=== PATIENT | female | born 1970 | race Hispanic/Latino ===

== ENCOUNTER → 2018-04-20 | Day surgery (SDC) | payer BC ==
[~2018-04-20] MED LIST: Biotin PO; FENTANYL CITRATE/PF 100MCG/2 ML INJ ONE; MIDAZOLAM HCL 2 MG/2 ML VIAL ONE; PROPOFOL IV EMULSION 10 MG/ML 50 ML VIAL ONE; SIMVASTATIN20 MG PO
--- OUTSIDE RECORDS SUMMARY | 2018-04-20 05:40 | XMS REPORT | Clinical Summary ---
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 Never 03/13/2018 How many drinks containing alcohol do you have on Not asked a typical day when you are drinking? How often do you have six or more drinks on one Not asked occasion? Sex Assigned at Date Recorded Not on file Industry Job Start Date Occupation Not on file Not on file Not on file Travel End Travel History Travel Start No recent travel history available. Last Filed Vital Signs Time Taken Vital Sign Reading 03/13/2018 10:50 PM [employer]OCKET ASSEMBLY OPERATOR Blood Pressure 169/71 03/13/2018 10:50 PM ROCKET ASSEMBLY OPERATOR Pulse 69 03/13/2018 5:17 PM ROCKET ASSEMBLY OPERATOR Temperature 36.8 C (98.3 F) 03/13/2018 10:50 PM ROCKET ASSEMBLY OPERATOR Respiratory Rate 17 03/13/2018 10:50 PM ROCKET ASSEMBLY OPERATOR Oxygen Saturation 100% - Inhaled Oxygen - Concentration - Weight - 03/13/2018 5:18 PM ROCKET ASSEMBLY OPERATOR Height 157.5 cm (5' 2") - Body Mass Index - Plan of Treatment Health Maintenance Due Date Last Done Comments CERVICAL CANCER SCREENING 1989 INFLUENZA VACCINE 09/22/2017 Procedures Comments Procedure Name Priority Date/Time Associated Diagnosis CT ABDOMEN PELVIS W STAT 03/13/2018 CONTRAST 10:16 PM ROCKET ASSEMBLY OPERATOR ESTIMATED GFR STAT 03/13/2018 7:36 PM ROCKET ASSEMBLY OPERATOR HCG QUALITATIVE, URINE STAT 03/13/2018 SCREEN 7:36 PM ROCKET ASSEMBLY OPERATOR URINALYSIS SCREEN AND STAT 03/13/2018 MICROSCOPY, WITH REFLEX 7:36 PM ROCKET ASSEMBLY OPERATOR TO CULTURE LIPASE LEVEL STAT 03/13/2018 7:36 PM ROCKET ASSEMBLY OPERATOR COMPREHENSIVE METABOLIC STAT 03/13/2018 PANEL 7:36 PM ROCKET ASSEMBLY OPERATOR HC COMPLETE BLD COUNT STAT 03/13/2018 W/AUTO DIFF 7:36 PM ROCKET ASSEMBLY OPERATOR URINE CULTURE STAT 03/13/2018 7:36 PM ROCKET ASSEMBLY OPERATOR after 04/19/2017 Results * CT Abdomen Pelvis W Contrast (03/13/2018 10:16 PM ROCKET ASSEMBLY OPERATOR) Narrative Performed At EXAM: CT ABDOMEN PELVIS W CONTRAST [facility] CLINICAL HISTORY:Abd painunspecified TECHNIQUE: Multidetector CT of the abdomen and pelvis was performed following intravenous administration of iodinated contrast with multiplanar reformats. CT scans are performed using radiation dose reduction techniques (iterative reconstruction and/or automated exposure control). Technical factors are evaluated and adjusted to ensure appropriate moderation of exposure. Automated dose management technology is applied to adjust radiation exposure while achieving a diagnostic quality image. COMPARISON:None FINDINGS: Lung bases: Dependent atelectasis. Otherwise unremarkable. Liver:Question of mild hepatic steatosis. No evidence for suspicious focal hepatic lesion. Gallbladder and biliary:Unremarkable. Pancreas:No focal pancreatic lesion identified. No pancreatic duct dilatation. Spleen: Unremarkable. Gastrointestinal:Stomach is unremarkable in appearance. Large and small bowel are normal in caliber. Appendix is visualized and appears normal. Scattered colonic diverticula are identified without evidence of acute diverticulitis. Peritoneum:No ascites or free air. Adrenals: Unremarkable. Kidneys and ureters:There is no evidence for large irregular renal mass, obstructing calculi, hydronephrosis, or hydroureter. Urinary bladder: Unremarkable. Reproductive organs:Uterus is unremarkable in appearance per CT. Lymph nodes:No enlarged lymph nodes in the abdomen or pelvis. Vascular:Unremarkable. Abdominal wall:Unremarkable. Bones:No acute osseous abnormality identified. L4-5 and L5-S1 moderate to advanced spondylosis is noted. IMPRESSION: 1.Subtle mid abdominal mesenteric stranding is identified with a few subcentimeter lymph nodes also seen, nonspecific. Findings may be physiological. Mesenteric panniculitis is on the differential. Otherwise no CT evidence for acute abdominopelvic process. 2.Scattered colonic diverticula are identified without evidence of acute diverticulitis. [facility]-[id number] Procedure Note Hm Interface, Radiology Results Incoming - 03/13/2018 10:41 PM ROCKET ASSEMBLY OPERATOR EXAM: CT ABDOMEN PELVIS W CONTRAST CLINICAL HISTORY: Abd pain unspecified TECHNIQUE: Multidetector CT of the abdomen and pelvis was performed following intravenous administration of iodinated contrast with multiplanar reformats. CT scans are performed using radiation dose reduction techniques (iterative reconstruction and/or automated exposure control). Technical factors are evaluated and adjusted to ensure appropriate moderation of exposure. Automated dose management technology is applied to adjust radiation exposure while achieving a diagnostic quality image. COMPARISON: None FINDINGS: Lung bases: Dependent atelectasis. Otherwise unremarkable. Liver: Question of mild hepatic steatosis. No evidence for suspicious focal hepatic lesion. Gallbladder and biliary: Unremarkable. Pancreas: No focal pancreatic lesion identified. No pancreatic duct dilatation. Spleen: Unremarkable. Gastrointestinal: Stomach is unremarkable in appearance. Large and small bowel are normal in caliber. Appendix is visualized and appears normal. Scattered colonic diverticula are identified without evidence of acute diverticulitis. Peritoneum: No ascites or free air. Adrenals: Unremarkable. Kidneys and ureters: There is no evidence for large irregular renal mass, obstructing calculi, hydronephrosis, or hydroureter. Urinary bladder: Unremarkable. Reproductive organs: Uterus is unremarkable in appearance per CT. Lymph nodes: No enlarged lymph nodes in the abdomen or pelvis. Vascular: Unremarkable. Abdominal wall: Unremarkable. Bones: No acute osseous abnormality identified. L4-5 and L5-S1 moderate to advanced spondylosis is noted. IMPRESSION: 1. Subtle mid abdominal mesenteric stranding is identified with a few subcentimeter lymph nodes also seen, nonspecific. Findings may be physiological. Mesenteric panniculitis is on the differential. Otherwise no CT evidence for acute abdominopelvic process. 2. Scattered colonic diverticula are identified without evidence of acute diverticulitis. [facility]-[id number] Performing Organization Address City/State/Zipcode Phone Number [facility] [address] [place] [address] * Urinalysis screen and microscopy, with reflex to culture (03/13/2018 7:36 PM ROCKET ASSEMBLY OPERATOR) Specimen site Clean catch [facility] Color, UA Straw [facility] Appearance, UA Clear [facility] Specific gravity, UA 1.015 1.001 - 1.035 [facility] pH, UA 5.0 5.0 - 8.5 [facility] Protein, UA Negative Negative [facility] Glucose, UA Negative Negative [facility] Ketones, UA Trace (A) Negative [facility] Bilirubin, UA Negative Negative [facility] Blood, UA Negative Negative [facility] Nitrite, UA Negative Negative [facility] Urobilinogen, UA <2.0 <2.0 [facility] Leukocyte esterase, UA Negative Negative [facility] Epithelial cells, UA 3 /HPF [facility] WBC, UA 4 0 - 4 /HPF [facility] RBC, UA <1 0 - 5 /HPF [facility] Bacteria, UA Few None seen [facility] Yeast, UA None seen [facility] Yeast with pseudohyphae, None seen [facility] Specimen Urine Performing Organization Address City/[facility] Centercode Phone Number [facility] [place] [address] PATHOLOGY AND GENOMIC MEDICINE [address] * Estimated GFR (03/13/2018 7:36 PM ROCKET ASSEMBLY OPERATOR) Estimated GFR >=90 mL/min/1.73 m2 [facility] Comment: HOSPITAL CatergoryUnitsInte rpretation G1 >=90 Normal or high G2 60-89Mildly decreased G0d23-78 Mildly to moderately decreased G9z92-30 Moderately to severely decreased G4 15-29Severely decreased G5 <15Kidney failure The eGFR was calculated using the Chronic Kidney Disease Epidemiology Collaboration (CKD-EPI) equation. Interpretation is based on recommendations of the National Kidney Foundation-Kidney Disease Outcomes Quality Initiative (NKF-KDOQI) published in 2014. Specimen Plasma specimen Performing Organization Address City/State/[facility] Cancer Centercode Phone Number [facility] [place] [address] PATHOLOGY AND GENOMIC MEDICINE [address] * hCG qualitative, urine screen (03/13/2018 7:36 PM ROCKET ASSEMBLY OPERATOR) hCG qualitative, urine NegativeComment: Sensitivity [facility] of HCG test: 25 mIU/mL HOSPITAL Specimen Urine Performing Organization Address City/State/Zipcode Phone Number [facility] [address] [place] [address] PATHOLOGY AND GENOMIC MEDICINE [address] [address] [facility] * CBC with platelet and differential (03/13/2018 7:36 PM ROCKET ASSEMBLY OPERATOR) WBC 11.34 (H) 4.50 - 11.00 k/uL [facility] RBC 4.65 4.20 - 5.50 m/uL [facility] HGB 13.5 12.0 - 16.0 g/dL [facility] HCT 42.1 37.0 - 47.0 % [facility] MCV 90.5 82.0 - 100.0 fL [facility] MCH 29.0 27.0 - 34.0 pg [facility] MCHC 32.1 31.0 - 37.0 g/dL [facility] RDW - SD 42.1 37.0 - 55.0 fL [facility] MPV 10.8 8.8 - 13.2 fL [facility] Platelet count 302 150 - 400 k/uL [facility] Nucleated RBC 0.00 /100 WBC [facility] Neutrophils 60.4 39.0 - 69.0 % [facility] Lymphocytes 29.6 25.0 - 45.0 % [facility] Monocytes 7.1 0.0 - 10.0 % [facility] Eosinophils 1.7 0.0 - 5.0 % [facility] Basophils 0.8 0.0 - 1.0 % [facility] Immature granulocytes 0.4Comment: "Immature 0.0 - 1.0 % [facility] granulocytes" (promyelocytes, HOSPITAL myelocytes, metamyelocytes) Specimen Blood Performing Organization Address City/State/Zipcode Phone Number [facility] DEPARTMENT [address] [place] [address] PATHOLOGY AND GENOMIC MEDICINE [address] [address] [facility] * Urine culture (03/13/2018 7:36 PM ROCKET ASSEMBLY OPERATOR) Urine culture SEE COMMENTComment: [facility] Bacteriuria screen negative. HOSPITAL Performing Organization Address City/State/Zipcode Phone Number [facility] DEPARTMENT [address] [address] PATHOLOGY AND GENOMIC MEDICINE [address] * Lipase level (03/13/2018 7:36 PM ROCKET ASSEMBLY OPERATOR) Lipase 24 13 - 60 U/L [facility] Specimen Plasma specimen Performing Organization Address [facility] Cancer Centercode Phone Number [facility] DEPARTMENT [address] [address] PATHOLOGY AND GENOMIC MEDICINE [address] * Comprehensive metabolic panel (03/13/2018 7:36 PM ROCKET ASSEMBLY OPERATOR) Sodium 133 (L) 135 - 148 mEq/L [facility] Potassium 3.7 3.5 - 5.0 mEq/L [facility] Chloride 98 98 - 112 mEq/L [facility] CO2 25 24 - 31 mEq/L [facility] Anion gap 10@ANIO 7 - 15 mEq/L [facility] BUN 10 6 - 20 mg/dL [facility] Creatinine 0.70 0.50 - 0.90 mg/dL [facility] Glucose 95 65 - 99 mg/dL [facility] Calcium 10.1 8.3 - 10.2 mg/dL [facility] Protein 7.9 6.3 - 8.3 g/dL [facility] Comment: HOSPITAL 4.6-7.0 g/dL 1 week 4.4-7.6 g/dL 7 months-1year 5.1-7.3 g/dL 1-2 years5.6-7 .5 g/dL >3 years6.0-8 .0 g/dL 18-150 6.3-8.3 g/dL Albumin 4.1 3.5 - 5.0 g/dL [facility] A/G ratio 1.1 0.7 - 3.8 [facility] Alkaline phosphatase 115 (H) 35 - 104 U/L [facility] AST 38 (H) 10 - 35 U/L [facility] ALT 30 5 - 50 U/L [facility] Total bilirubin 0.7 0.0 - 1.2 mg/dL [facility] Specimen Plasma specimen Performing Organization Address City/[facility] Centercode Phone Number [facility] DEPARTMENT [address] [address] PATHOLOGY AND GENOMIC MEDICINE JAMES TOPETE [address] [place] [phone] HOSPITAL after 04/19/2017 Insurance Payer Benefit Subscriber ID Type Phone Address Plan / Group BCBS BCBS xxxxxxxxxxxx PPO CHOICE PPO/FEDERA L EMPL PPO BCBS ANTHEM xxxxxxxxxxxx PPO BLUE CROSS Advance Directives Patient has advance care planning documents on file. For more information, delmis flores contact: James Topete [address] [place] [address]
[2018-04-20 08:30] VITALS: BP 127/71
== END | disposition home or self-care (01) ==
LOC: OR 05:37
PROVIDERS: ATTEND Internal Medicine Gastroenterology
DX: K29.50 Unspecified chronic gastritis without bleeding (principal); K52.9 Noninfective gastroenteritis and colitis, unspecified; K21.0 Gastro-esophageal reflux disease with esophagitis; K57.30 Diverticulosis of large intestine without perforation or abscess without bleeding; K64.4 Residual hemorrhoidal skin tags; Z71.3 Dietary counseling and surveillance; E66.9 Obesity, unspecified; E78.5 Hyperlipidemia, unspecified; Z68.39 Body mass index [BMI] 39.0-39.9, adult; Z87.891 Personal history of nicotine dependence; Z80.0 Family history of malignant neoplasm of digestive organs
CPT/HCPCS: 43239; 45380; 81025; J2250; J2704; 45378

== ENCOUNTER → 2020-01-11 | Day surgery (SDC) | payer BC ==
[2020-01-08 10:25] LABS: INR 0.99; PROTHROMBIN TIME 13.6 seconds (11.9-14.5)
[2020-01-08 10:26] LABS: PARTIAL THROMBOPLASTIN TIME 26.6 seconds (23.8-35.5)
[~2020-01-11] MED LIST changes: +ATENOLOL50 MG PO; +BUPIVACAINE HCL 0.5% INJ 30 ML VIAL INJ ONE; +CEFAZOLIN SOD 1 GM/NS 50ML 100 ML IV ONE; -FENTANYL CITRATE/PF 100MCG/2 ML INJ ONE; +LIDOCAINE HCL 2% LOCAL INJ 5 ML SDV VIAL INJ ONE; -MIDAZOLAM HCL 2 MG/2 ML VIAL ONE; +PROPOFOL IV EMULSION 10 MG/ML 20 ML VIAL ONE; -PROPOFOL IV EMULSION 10 MG/ML 50 ML VIAL ONE; +SEVOFLURANE INHAL SOLN 250 ML PEN BTL ONE; +TAPAZOLE10 MG PO
[2020-01-11 09:43] VITALS: BP 131/58
--- NOTE | 2020-01-11 10:07 | Operative Report ---
DATE OF PROCEDURE: 01/11/2020 SURGEON: Artie Houston MD PREOPERATIVE DIAGNOSIS: Left carpal tunnel syndrome. PROCEDURE: Left carpal tunnel release. ANESTHESIA: General. INDICATIONS: The patient is a 49-year-old woman, who presents with left carpal tunnel syndrome, was taken to surgery for left carpal tunnel release. PROCEDURE IN DETAIL: After induction of general anesthesia, the patient was placed on the operating table in supine position with the left arm abducted over a hand table. The left hand, wrist, and forearm were prepped and draped circumferentially in sterile fashion. The tourniquet was inflated over the upper arm to 250 mmHg. A small midline incision was created over the median palmar crease of the hand just distal to the distal flexor crease of the wrist. The subcutaneous fat was divided. Transverse carpal ligament was identified and incised with a #15 C blade until the underlying median nerve came into view. As the special education educational assistant retracted the skin edges, transverse carpal ligament was divided proximally and distally until the full length of the median nerve was exposed and decompressed within the carpal tunnel. The point of maximal compression of nerve appeared to be 2 cm distal to the distal flexor crease of the wrist, where the ligament was at its thickest. More distally, the recurrent motor branch of the nerve was preserved within its fat pad. The wound was copiously irrigated with bacitracin solution. The subcutaneous layer was closed with a 3-0 Vicryl suture. The skin was closed with 3-0 nylon suture in a horizontal mattress fashion. A dressing was applied. The patient was awakened, extubated, and taken to postanesthesia care unit in stable condition. No intraoperative complications were encountered. Estimated blood loss was minimal. Artie Houston MD PP/MODL /[id number]
== END | disposition home or self-care (01) ==
LOC: OR 06:17
PROVIDERS: ATTEND Neurological Surgery
DX: G56.02 Carpal tunnel syndrome, left upper limb (principal); I10 Essential (primary) hypertension; R00.1 Bradycardia, unspecified; E03.9 Hypothyroidism, unspecified; Z01.810 Encounter for preprocedural cardiovascular examination; Z01.812 Encounter for preprocedural laboratory examination; Z20.828 Contact with and (suspected) exposure to other viral communicable diseases; Z68.36 Body mass index [BMI] 36.0-36.9, adult
CPT/HCPCS: 36415; 64721; 85610; 85730; 93005; J0690; J2001; J2704; U0002

== ENCOUNTER → 2021-09-26 | Day surgery (SDC) | payer BC ==
[2021-09-24 09:18] LABS: BASOPHILS # (AUTO) 0.1 (0.0-0.1); BASOPHILS % 0.8 % (0.0-1.0); EOSINOPHILS # (AUTO) 0.2 (0.0-0.4); EOSINOPHILS % 2.4 % (0.0-6.0); HEMATOCRIT 41.5 % (34.2-44.1); HEMOGLOBIN 13.4 g/dL (12.0-16.0); LYMPHOCYTES # (AUTO) 3.3 (1.0-3.2); LYMPHOCYTES % 37.4 % (18.0-39.1); MEAN CORPUSCULAR HEMOGLOBIN 28.9 pg (28-32); MEAN CORPUSCULAR HGB CONC 32.3 g/dL (31-35); MEAN CORPUSCULAR VOLUME 89.4 fL (81-99); MONOCYTES # (AUTO) 0.7 (0.2-0.8); MONOCYTES % 8.1 % (4.4-11.3); NEUTROPHILS # (AUTO) 4.5 (2.1-6.9); NEUTROPHILS % 51.1 % (38.7-80.0); PLATELET COUNT 322 x10e3/uL (140-360); RED BLOOD COUNT 4.64 x10e6/uL (3.6-5.1); RED CELL DISTRIBUTION WIDTH 13.3 % (11.7-14.4)
[~2021-09-26] MED LIST changes: +ACETAMINOPHEN 1000 MG/100 ML 100 ML IV ONE; -BUPIVACAINE HCL 0.5% INJ 30 ML VIAL INJ ONE; -CEFAZOLIN SOD 1 GM/NS 50ML 100 ML IV ONE; +DEXAMETHASONE SOD PHOS INJ 4 MG/ML SDV ONE; +FENTANYL CITRATE/PF 100MCG/2 ML INJ ONE; +KETOROLAC TROMETHAMINE 30 MG/ML VIAL ONE; +METHIMAZOLE10 MG; +MIDAZOLAM HCL 2 MG/2 ML VIAL ONE; +ONDANSETRON HCL INJ 2MG/ML 2ML 2 MG/ML VIAL ONE
[2021-09-26 14:45] VITALS: BP 131/65
== END | disposition home or self-care (01) ==
LOC: OR 10:41
PROVIDERS: ATTEND Obstetrics & Gynecology
DX: N84.0 Polyp of corpus uteri (principal); R00.1 Bradycardia, unspecified; E03.9 Hypothyroidism, unspecified; Z01.810 Encounter for preprocedural cardiovascular examination; Z01.812 Encounter for preprocedural laboratory examination; Z20.822 Contact with and (suspected) exposure to COVID-19; Z79.899 Other long term (current) drug therapy
CPT/HCPCS: 0223U; 36415; 81025; 85025; 88305; 93005; J1100; J1885; J2001; J2250; J2405; J3010